=== PATIENT | female | born 1995 | race Caucasian/White ===

== ENCOUNTER 2020-02-09 18:53 | Emergency (ER) | payer OTHER ==
[2020-02-09 19:03] VITALS: BP 117/79; TEMP 97.9
[2020-02-09] MEDS ORDERED: ALBUTEROL NEBULIZED 2.5 MG/3 ML INHALATION STA (19:19)
--- NOTE | 2020-02-09 19:24 | ED ---
General Adult HPI - General Chief complaint: Shortness of Breath Stated complaint: asthma med refill Time Seen by Provider: 02/09/20 19:06 Source: patient Mode of arrival: ambulatory Limitations: no limitations - History of Present Illness Initial comments: Patient is a 24-year-old female presenting to the emergency Department with complaints of mild shortness of breath and being out of her asthma medications. Patient states she has been trying to get a refill on her asthma meds for 1-2 months now and today she had a tele-health appointment with her PCP however her doctor never called her and she is becoming more and more short of breath. Patient denies any fever, chills. She states the shortness of breath feels very gradual over the last 1-2 months but she can tell her symptoms are worsening. She states she was tested for Covid 2 weeks ago which was negative. She denies any chest pains, nausea, vomiting. She states she is not . She states that she has an appointment with a different PCP in 2 months. She has no further complaints at this time. Upon arrival to the ER her vital signs are stable. - Related Data Home Medications Medication Instructions Recorded Confirmed Acetaminophen Tab [Tylenol Tab] 650 mg PO Q4H PRN 04/05/16 04/05/16 Medroxyprogesterone Acetate 150 mg IM Q90D 04/05/16 04/05/16 [Depo-Provera] Previous Rx's Medication Instructions Recorded Albuterol Inhaler [Ventolin Hfa 1 puff INHALATION Q4H PRN #1 puff 02/09/20 Inhaler] Tiotropium 18 Mcg/Puff [Spiriva] 1 puff INHALATION DAILY #1 device 02/09/20 Allergies Allergy/AdvReac Type Severity Reaction Status Date / Time amoxicillin Allergy Rash/Hives Verified 09/02/19 10:10 Review of Systems ROS Statement: Those systems with pertinent positive or pertinent negative responses have been documented in the HPI. ROS Other: All systems not noted in ROS Statement are negative. Past Medical History Past Medical History: Asthma, No Reported History, Thyroid Disorder Additional Past Medical History / Comment(s): BRUISES EASILY History of Any Multi-Drug Resistant Organisms: None Reported Past Surgical History: No Surgical Hx Reported Additional Past Surgical History / Comment(s): DENTAL EXTRACTION Past Anesthesia/Blood Transfusion Reactions: No Reported Reaction Past Psychological History: Anxiety Smoking Status: Never smoker Past Alcohol Use History: Occasional Past Drug Use History: Marijuana - Past Family History Mother Family Medical History: Cancer Additional Family Medical History / Comment(s): CERVICAL CA General Exam - General Exam Comments Initial Comments: GENERAL: Patient is well-developed and well-nourished. Patient is nontoxic and in no acute distress. HEAD: Atraumatic, normocephalic. EYES: Pupils equal round and reactive to light, extraocular movements intact, sclera anicteric, conjunctiva are normal. Eyelids were unremarkable. ENT: TMs normal, nares patent, oropharynx clear without exudates. Moist mucous membranes. NECK: Normal range of motion, supple without lymphadenopathy or JVD. LUNGS: Unlabored respirations. Breath sounds clear to auscultation bilaterally and equal. No wheezes rales or rhonchi. HEART: Regular rate and rhythm without murmurs, rubs or gallops. ABDOMEN: Soft, nontender, normoactive bowel sounds. No guarding, no rebound. No masses appreciated. : Deferred MUSCULOSKELETAL: Normal extremities with adequate strength and normal range of motion, no pitting or edema. No clubbing or cyanosis. NEUROLOGICAL: Patient is alert and oriented x 3. Motor and sensory are also intact. Normal speech, normal gait. PSYCH: Normal mood, normal affect. SKIN: Warm, Dry, normal turgor, no rashes or lesions noted. Limitations: no limitations Course Vital Signs 02/09/20 02/09/20 02/09/20 19:00 19:46 19:53 Temperature 97.9 F Pulse Rate 98 77 80 Respiratory 18 18 16 Rate Blood Pressure 117/79 O2 Sat by Pulse 99 Oximetry Medical Decision Making - Medical Decision Making Patient is a 24-year-old female here requesting a refill on her asthma medications, albuterol and Spiriva. She is complaining of gradual shortness of breath over the last 1-2 months, she's been out of her medications since December. Her vital signs are stable her exam is unremarkable. I did order her an albuterol treatment which did improve her symptoms. I will give her relief of her medications. She will follow up with a new PCP and 2 months. She is in agreement with this plan of care. She is stable for discharge. Disposition Clinical Impression: Medication refill, Shortness of breath Disposition: HOME SELF-CARE Condition: Stable Instructions (If sedation given, give patient instructions): Asthma (ED) Additional Instructions: Please return to the Emergency Department if symptoms worsen or any other concerns. Take medications as prescribed. Follow-up with PCP. Prescriptions: Tiotropium 18 Mcg/Puff [Spiriva] 1 puff INHALATION DAILY #1 device Albuterol Inhaler [Ventolin Hfa Inhaler] 1 puff INHALATION Q4H PRN #1 puff PRN Reason: shortness of breath Is patient prescribed a controlled substance at d/c from ED?: No Referrals: None,Stated [Primary Care Provider] - 1-2 days
[2020-02-09 19:54] VITALS: PULSE 80; RESP 16
== END 2020-02-09 20:09 | disposition home or self-care (01) ==
LOC: EC 18:53
DX: R06.02 Shortness of breath (principal); Z76.0 Encounter for issue of repeat prescription; Z88.0 Allergy status to penicillin
CPT/HCPCS: 94640; 99285

== ENCOUNTER 2020-02-22 18:22 | Emergency (ER) | payer OTHER ==
[2020-02-22] MEDS ORDERED: KETOROLAC 15 MG/ML 1 ML VIAL IVP STA (18:36)
[2020-02-22 19:19] LABS: Basophils % (A) 0 %; Eosinophils # (A) 0.1 k/uL (0-0.7); Eosinophils % (A) 1 %; HCT 43.4 % (34.0-46.0); HGB 14.2 gm/dL (11.4-16.0); Lymphocytes # (A) 1.2 k/uL (1.0-4.8); Lymphocytes % (A) 10 %; MCH 27.9 pg (25.0-35.0); MCHC 32.7 g/dL (31.0-37.0); MCV 85.1 fL (80.0-100.0); Mean Platelet Volume 7.2; Monocytes # (A) 0.3 k/uL (0-1.0); Monocytes % (A) 2 %; Neutrophils # (A) 10.8 k/uL (1.3-7.7); Neutrophils % (A) 86 %; Platelet Count 256 k/uL (150-450); RDW 12.6 % (11.5-15.5); WBC 12.5 k/uL (3.8-10.6)
[2020-02-22 19:31] LABS: ALT 9 U/L (4-34); AST 20 U/L (14-36); African American GFR (CKD) >90 (>60 ml/min/1.73 sqM); Albumin 4.9 g/dL (3.5-5.0); Alkaline Phosphatase 118 U/L (38-126); Anion Gap 13 mmol/L; Blood Urea Nitrogen 14 mg/dL (7-17); Calcium 9.9 mg/dL (8.4-10.2); Carbon Dioxide 22 mmol/L (22-30); Chloride 102 mmol/L (98-107); Glucose 101 mg/dL (74-99); Non-African American GFR(CKD) >90 (>60 ml/min/1.73 sqM); Potassium 4.3 mmol/L (3.5-5.1); Sodium 137 mmol/L (137-145); Total Bilirubin 0.6 mg/dL (0.2-1.3); Total Protein 8.7 g/dL (6.3-8.2)
--- NOTE | 2020-02-22 19:46 | ED ---
Abdominal Pain HPI - General Chief Complaint: Abdominal Pain Stated Complaint: IUD Pain Time Seen by Provider: 02/22/20 18:27 Source: patient Limitations: no limitations - History of Present Illness Initial Comments: 24-year-old female presenting today for chief complaint pain after IUD placement. Patient states she was given a medication to cause dilation of her cervix and has the IUD inserted. patient states that she has had some spotting no heavy bleeding and significant pain. patient states that there is a lot of cramping and she is not sure this is secondary to the medication or just the iUD placement within itself. Patient was told by her OBGYN to come here and have the strings checked. Patient states she took 1000mg so far today for pain. Patient denies additional complaints. Upon arrival patient appaers well nontoxic in no acute distress. - Related Data Home Medications Medication Instructions Recorded Confirmed Acetaminophen Tab [Tylenol Tab] 650 mg PO Q4H PRN 04/05/16 04/05/16 Medroxyprogesterone Acetate 150 mg IM Q90D 04/05/16 04/05/16 [Depo-Provera] Previous Rx's Medication Instructions Recorded Albuterol Inhaler [Ventolin Hfa 1 puff INHALATION Q4H PRN #1 puff 02/09/20 Inhaler] Tiotropium 18 Mcg/Puff [Spiriva] 1 puff INHALATION DAILY #1 device 02/09/20 Ibuprofen 600 mg PO Q8H PRN 7 Days #21 tab 02/22/20 Allergies Allergy/AdvReac Type Severity Reaction Status Date / Time amoxicillin Allergy Rash/Hives Verified 02/22/20 18:26 Review of Systems ROS Statement: Those systems with pertinent positive or pertinent negative responses have been documented in the HPI. ROS Other: All systems not noted in ROS Statement are negative. Past Medical History Past Medical History: Asthma, No Reported History, Thyroid Disorder Additional Past Medical History / Comment(s): BRUISES EASILY History of Any Multi-Drug Resistant Organisms: None Reported Past Surgical History: No Surgical Hx Reported Additional Past Surgical History / Comment(s): DENTAL EXTRACTION Past Anesthesia/Blood Transfusion Reactions: No Reported Reaction Past Psychological History: Anxiety Smoking Status: Never smoker Past Alcohol Use History: Occasional Past Drug Use History: Marijuana - Past Family History Mother Family Medical History: Cancer Additional Family Medical History / Comment(s): CERVICAL CA General Exam - General Exam Comments Initial Comments: General: The patient is awake and alert, in no distress Eye: Pupils are equal, round and reactive to light, extra-ocular movements are intact. No nystagmus. There is normal conjunctiva bilaterally. No signs of icterus. Ears, nose, mouth and throat: There are moist mucous membranes and no oral lesions. Neck: The neck is supple, there is no tenderness or JVD. Cardiovascular: There is a regular rate and rhythm. No murmur, rub or gallop is appreciated. Respiratory: Lungs are clear to auscultation, respirations are non-labored, breath sounds are equal. No wheezes, stridor, rales, or rhonchi. Gastrointestinal: Soft, non-distended, mild midline lower pelvic pain, no upper abdominal pain, abdomen without masses or organomegaly noted. There is no rebo und or guarding present. ; os closed, IUD string in cervical os opening. scant dark brown blood in vault no large quantity of bright red blood Musculoskeletal: Normal ROM, no tenderness. Strength 5/5. Sensation intact. Radial pulses equal bilaterally 2+. Neurological: A&O x 3. CN II-XII intact grossly, There are no obvious motor or sensory deficits. Coordination appears grossly intact. Speech is normal. Skin: Skin is warm and dry and no rashes or lesions are noted. Psychiatric: Cooperative, appropriate mood & affect, normal judgment. Limitations: no limitations Course Vital Signs 02/22/20 02/22/20 18:23 20:25 Temperature 97.3 F L 98.7 F Pulse Rate 88 99 Respiratory 18 16 Rate Blood Pressure 127/88 103/78 O2 Sat by Pulse 98 98 Oximetry Medical Decision Making - Medical Decision Making Labs stable. US IUD placement appropriate, string in good position on pelvic exam. Pt did not appear to have rigidity or guarding on abdominal exam. Did not appear to be acute abdomen. Patient has trace amount of free fluid on US no large quantities. Significant improvement of symptoms after administration of toradol. recommended NSAIDs outpatient with OBGYN f/u, return for increasing pain/bleeding/fevers. Patient agreeable to care plan and discharge. Case discussed with Dr. Ramirez via telephone. - Lab Data Result diagrams: 02/22/20 18:52 02/22/20 18:52 Lab Results 02/22/20 02/22/2002/21/20 Range/Units 18:52 18:52 18:52 WBC 12.5 H (3.8-10.6) k/uL RBC 5.10 (3.80-5.40) m/uL Hgb 14.2 (11.4-16.0) gm/dL Hct 43.4 (34.0-46.0) % MCV 85.1 (80.0-100.0) fL MCH 27.9 (25.0-35.0) pg MCHC 32.7 (31.0-37.0) g/dL RDW 12.6 (11.5-15.5) % Plt Count 256 (150-450) k/uL Neutrophils % 86 % Lymphocytes % 10 % Monocytes % 2 % Eosinophils % 1 % Basophils % 0 % Neutrophils # 10.8 H (1.3-7.7) k/uL Lymphocytes # 1.2 (1.0-4.8) k/uL Monocytes # 0.3 (0-1.0) k/uL Eosinophils # 0.1 (0-0.7) k/uL Basophils # 0.0 (0-0.2) k/uL Sodium 137 (137-145) mmol/L Potassium 4.3 (3.5-5.1) mmol/L Chloride 102 (98-107) mmol/L Carbon Dioxide 22 (22-30) mmol/L Anion Gap 13 mmol/L BUN 14 (7-17) mg/dL Creatinine 0.72 (0.52-1.04) mg/dL Est GFR (CKD-EPI)AfAm >90 (>60 ml/min/1.73 sqM) Est GFR (CKD-EPI)NonAf >90 (>60 ml/min/1.73 sqM) Glucose 101 H (74-99) mg/dL Calcium 9.9 (8.4-10.2) mg/dL Total Bilirubin 0.6 (0.2-1.3) mg/dL AST 20 (14-36) U/L ALT 9 (4-34) U/L Alkaline Phosphatase 118 (38-126) U/L Total Protein 8.7 H (6.3-8.2) g/dL Albumin 4.9 (3.5-5.0) g/dL Urine HCG, Qual Not Detected (Not Detectd) Disposition Clinical Impression: Other acute postprocedural pain, Abdominal cramping Disposition: HOME SELF-CARE Condition: Good Instructions (If sedation given, give patient instructions): Intrauterine Device (DC) Additional Instructions: Please use medication as discussed. Please follow-up with family doctor in the next 2 days, OBGYN in next week. Please return to emergency room if the symptoms increase or worsen or for any other concerns. Prescriptions: Ibuprofen 600 mg PO Q8H PRN 7 Days #21 tab PRN Reason: Pain Is patient prescribed a controlled substance at d/c from ED?: No Referrals: None,Stated [Primary Care Provider] - 1-2 days Rosanne Mejia, DO [Family Provider] - 1-2 days Time of Disposition: 20:18
--- NOTE | 2020-02-22 20:12 | US ---
EXAMINATION TYPE: US transvaginal DATE OF EXAM: 02/22/2020 COMPARISON: US 2017 CLINICAL HISTORY: IUD placement. IUD placement. Patient recently off Depo. . Hx miscarriage. TECHNIQUE: Transvaginal (TV). Date of LMP: Unknown. EXAM MEASUREMENTS: Uterus: 6.9 x 3.8 x 3.0 cm Endometrial Stripe: 0.43 cm Right Ovary: 3.2 x 5.5 x 1.9 cm Left Ovary: 2.9 x 2.2 x 1.5 cm 1. Uterus: Anteverted Appears slightly heterogeneous. IUD appears to be within the upper-mid endom etrium. Hypoechoic area seen mid uterus measurin.8 x 1.1 x 0.2 cm. 2. Endometrium: Measures 0.43 cm. 3. Right Ovary: Anechoic areas seen. Largest measures: 1.2 x 1.4 x 0.9 cm. 4. Left Ovary: Subcentimeter anechoic areas seen. Spectral, color and waveform doppler imaging shows arterial and venous flow within the ovaries. 5. Bilateral Adnexa: Appear wnl 6. Posterior cul-de-sac: Fluid visualized: 0.6 x 1.1 x 0.7 cm. IMPRESSION: IUD appears in good position. There is trace amount of free fluid in the cul-de-sac. No adnexal mass.
[2020-02-22 20:26] VITALS: BP 103/78; PULSE 99; RESP 16; TEMP 98.7
== END 2020-02-22 20:27 | disposition home or self-care (01) ==
LOC: EC 18:22
DX: G89.18 Other acute postprocedural pain (principal); R10.9 Unspecified abdominal pain; Z97.5 Presence of (intrauterine) contraceptive device; Z88.0 Allergy status to penicillin; Z79.3 Long term (current) use of hormonal contraceptives
CPT/HCPCS: 36415; 80053; 85025; 81025; 93975; 76830; 99284; 96374; J1885

== ENCOUNTER 2020-03-26 13:31 | Emergency (ER) | payer OTHER ==
[2020-03-26 13:42] VITALS: BP 125/89; PULSE 102; TEMP 98.3
--- NOTE | 2020-03-26 14:12 | XR ---
EXAMINATION TYPE: XR ankle complete LT DATE OF EXAM: 03/26/2020 COMPARISON: NONE HISTORY: Ankle pain TECHNIQUE: 3 views FINDINGS: Ankle mortise is anatomic. I see no fracture nor dislocation. Joint spaces are normal. IMPRESSION: Negative left ankle exam. No fracture.
[2020-03-26 14:15] VITALS: RESP 18
--- NOTE | 2020-03-26 14:36 | ED ---
Lower Extremity Injury HPI - General Chief Complaint: Extremity Injury, Lower Stated Complaint: L Ankle Injury Time Seen by Provider: 03/26/20 13:47 Source: patient Mode of arrival: ambulatory Limitations: no limitations - History of Present Illness Initial Comments: Patient is a 24-year-old female presenting to the emergency Department with complaints of left ankle pain for 2 days. Patient states 2 days ago she fell and tripped injuring her left ankle. Patient states she went to [facility] and did have x-rays, she was told they were negative and gave her orthopedic follow-up. Patient states she returns today because she "knows she has a broken left ankle." She states she has had previous fractures of her left ankle and she believes x-ray was wrong. She denies any numbness or tingling. She denies any fever or chills. She has no other complaints at this time. - Related Data Home Medications Medication Instructions Recorded Confirmed Acetaminophen Tab [Tylenol Tab] 650 mg PO Q4H PRN 04/05/16 04/05/16 Medroxyprogesterone Acetate 150 mg IM Q90D 04/05/16 04/05/16 [Depo-Provera] Previous Rx's Medication Instructions Recorded Albuterol Inhaler [Ventolin Hfa 1 puff INHALATION Q4H PRN #1 puff 02/09/20 Inhaler] Tiotropium 18 Mcg/Puff [Spiriva] 1 puff INHALATION DAILY #1 device 02/09/20 Ibuprofen 600 mg PO Q8H PRN 7 Days #21 tab 02/22/20 Allergies Allergy/AdvReac Type Severity Reaction Status Date / Time amoxicillin Allergy Rash/Hives Verified 03/26/20 13:42 Review of Systems ROS Statement: Those systems with pertinent positive or pertinent negative responses have been documented in the HPI. ROS Other: All systems not noted in ROS Statement are negative. Past Medical History Past Medical History: Asthma, Thyroid Disorder Additional Past Medical History / Comment(s): BRUISES EASILY History of Any Multi-Drug Resistant Organisms: None Reported Past Surgical History: No Surgical Hx Reported Additional Past Surgical History / Comment(s): DENTAL EXTRACTION Past Anesthesia/Blood Transfusion Reactions: No Reported Reaction Past Psychological History: Anxiety, Depression Smoking Status: Never smoker Past Alcohol Use History: Occasional Past Drug Use History: Marijuana - Past Family History Mother Family Medical History: Cancer Additional Family Medical History / Comment(s): CERVICAL CA General Exam - General Exam Comments Initial Comments: GENERAL: Patient is well-developed and well-nourished. Patient is nontoxic and in no acute distress. HEAD: Atraumatic, normocephalic. EYES: Pupils equal round and reactive to light, extraocular movements intact, sclera anicteric, conjunctiva are normal. Eyelids were unremarkable. ENT: TMs normal, nares patent, oropharynx clear without exudates. Moist mucous membranes. NECK: Normal range of motion, supple without lymphadenopathy or JVD. LUNGS: Unlabored respirations. Breath sounds clear to auscultation bilaterally and equal. No wheezes rales or rhonchi. HEART: Regular rate and rhythm without murmurs, rubs or gallops. ABDOMEN: Soft, nontender, normoactive bowel sounds. No guarding, no rebound. No masses appreciated. : Deferred MUSCULOSKELETAL: Patient has pain with palpation of the lateral malleolus of the left ankle, she does have some mild swelling, no bruising, neurovascular intact. She does have full range of motion, pain at the end range. No pain of the left foot or left lower leg. No clubbing or cyanosis. NEUROLOGICAL: Patient is alert and oriented x 3. Motor and sensory are also intact. Cranial nerves II through XII grossly intact. Symmetrical smile. Normal speech, normal gait. PSYCH: Normal mood, normal affect. SKIN: Warm, Dry, normal turgor, no rashes or lesions noted. Limitations: no limitations Course Vital Signs 03/26/20 13:39 Temperature 98.3 F Pulse Rate 102 H Respiratory 18 Rate Blood Pressure 125/89 O2 Sat by Pulse 98 Oximetry Medical Decision Making - Medical Decision Making Patient is a 24-year-old female here for left ankle pain for the last 2 days. She did have x-rays and was evaluated at [facility] 2 days ago, they were negative however she wanted to be reevaluated. X-rays today reveal no acute fractures dislocations. I discussed the patient is most likely an ankle sprain. She states she does have an ankle brace and orthopedic follow-up. She is stable for discharge. Recommended ibuprofen, ice for her discomfort. She is stable for discharge. Disposition Clinical Impression: Left ankle sprain Disposition: HOME SELF-CARE Condition: Stable Instructions (If sedation given, give patient instructions): Ankle Sprain (ED) Additional Instructions: Please return to the Emergency Department if symptoms worsen or any other concerns. X-rays today are normal. Recommend ice, ibuprofen for discomfort, wear ankle brace. Follow-up with orthopedics if symptoms persist more than 1-2 weeks without improvement. Is patient prescribed a controlled substance at d/c from ED?: No Referrals: Nelson Foy MD [Primary Care Provider] - 1-2 days
== END 2020-03-26 14:40 | disposition home or self-care (01) ==
LOC: EC 13:31
DX: S93.402A Sprain of unspecified ligament of left ankle, initial encounter (principal); Z88.0 Allergy status to penicillin; Z79.3 Long term (current) use of hormonal contraceptives; W08.XXXA Fall from other furniture, initial encounter
CPT/HCPCS: 99283

== ENCOUNTER 2020-05-21 15:34 | Emergency (ER) | payer OTHER ==
[2020-05-21 15:39] VITALS: BP 125/90; PULSE 97; RESP 18; TEMP 98.3
[2020-05-21] MEDS ORDERED: KETOROLAC 15 MG/ML 1 ML VIAL IM STA (16:02)
[2020-05-21] MEDS ORDERED: ONDANSETRON ODT 4 MG TAB PO STA (16:02)
--- NOTE | 2020-05-21 16:22 | ED ---
Headache HPI - General Chief Complaint: Headache Stated Complaint: Headache Time Seen by Provider: 05/21/20 15:41 Limitations: no limitations - History of Present Illness Initial Comments: Patient is a 24-year-old female presenting to the emergency Department with complaints of a headache that started yesterday. She does have history of migraines but has not taken anything for her migraines. She states she took a Tylenol last night but nothing today. She is feeling a little bit nauseous. She denies any lightheadedness, dizziness, fever or chills. She states this feels like her typical headaches. She denies any injuries or trauma. She denies being . She has no further complaints. - Related Data Home Medications Medication Instructions Recorded Confirmed Albuterol Inhaler [Ventolin Hfa 1 puff INHALATION RT-Q4H PRN 05/21/20 05/21/20 Inhaler] Escitalopram [Lexapro] 20 mg PO DAILY 05/21/20 05/21/20 valACYclovir [Valtrex] 500 mg PO BID 05/21/20 05/21/20 Allergies Allergy/AdvReac Type Severity Reaction Status Date / Time amoxicillin Allergy Rash/Hives Verified 05/21/20 16:37 Review of Systems ROS Statement: Those systems with pertinent positive or pertinent negative responses have been documented in the HPI. ROS Other: All systems not noted in ROS Statement are negative. Past Medical History Past Medical History: Asthma, Thyroid Disorder Additional Past Medical History / Comment(s): BRUISES EASILY History of Any Multi-Drug Resistant Organisms: None Reported Past Surgical History: No Surgical Hx Reported Additional Past Surgical History / Comment(s): DENTAL EXTRACTION Past Anesthesia/Blood Transfusion Reactions: No Reported Reaction Past Psychological History: Anxiety, Depression Smoking Status: Never smoker Past Alcohol Use History: Occasional Past Drug Use History: Marijuana - Past Family History Mother Family Medical History: Cancer Additional Family Medical History / Comment(s): CERVICAL CA General Exam - General Exam Comments Initial Comments: GENERAL: Patient is well-developed and well-nourished. Patient is nontoxic and in no acute distress, when entering the room, patient was playing on her phone in no acute distress. HEAD: Atraumatic, normocephalic. EYES: Pupils equal round and reactive to light, extraocular movements intact, sclera anicteric, conjunctiva are normal. Eyelids were unremarkable. ENT: TMs normal, nares patent, oropharynx clear without exudates. Moist mucous membranes. NECK: Normal range of motion, supple without lymphadenopathy or JVD. LUNGS: Unlabored respirations. Breath sounds clear to auscultation bilaterally and equal. No wheezes rales or rhonchi. HEART: Regular rate and rhythm without murmurs, rubs or gallops. ABDOMEN: Soft, nontender, normoactive bowel sounds. No guarding, no rebound. No masses appreciated. : Deferred MUSCULOSKELETAL: Normal extremities with adequate strength and normal range of motion, no pitting or edema. No clubbing or cyanosis. NEUROLOGICAL: Patient is alert and oriented x 3. Motor and sensory are also intact. Cranial nerves II through XII grossly intact. Symmetrical smile. Normal speech, normal gait. PSYCH: Normal mood, normal affect. SKIN: Warm, Dry, normal turgor, no rashes or lesions noted. Limitations: no limitations Course Vital Signs 05/21/20 15:35 Temperature 98.3 F Pulse Rate 97 Respiratory 18 Rate Blood Pressure 125/90 O2 Sat by Pulse 100 Oximetry Medical Decision Making - Medical Decision Making Patient is a 24-year-old female here with a headache since yesterday. Her vital signs are stable. Her exam is unremarkable, no acute neuro deficits. She is resting complaining the room, playing on a phone when I went in for the exam. Patient will be given Toradol injection and Zofran for her nausea. She reports improvement in her symptoms. She is stable for discharge. She can follow-up with her regular doctor. Disposition Clinical Impression: Headache Disposition: HOME SELF-CARE Condition: Stable Instructions (If sedation given, give patient instructions): Acute Headache (ED) Additional Instructions: Please return to the Emergency Department if symptoms worsen or any other concerns. Recommended taking ibuprofen or Excedrin for future headaches. Follow-up with your regular doctor. Is patient prescribed a controlled substance at d/c from ED?: No Referrals: Nelson Foy MD [Primary Care Provider] - 1-2 days
== END 2020-05-21 17:00 | disposition home or self-care (01) ==
LOC: EC 15:34
DX: R51.9 Headache, unspecified (principal); R11.0 Nausea; J45.909 Unspecified asthma, uncomplicated; F41.9 Anxiety disorder, unspecified; F32.9 Major depressive disorder, single episode, unspecified; Z79.899 Other long term (current) drug therapy; Z88.0 Allergy status to penicillin
CPT/HCPCS: 99283; 96372; J1885

== ENCOUNTER → 2020-11-01 | Outpatient (CLI) | payer OTHER ==
--- NOTE | 2020-11-01 11:58 | XR ---
EXAMINATION TYPE: XR lumbar spine 2 or 3V DATE OF EXAM: 11/01/2020 CLINICAL HISTORY: pain TECHNIQUE: Three views of the lumbar spine are submitted. COMPARISON: None. FINDINGS: There are 5 lumbar type vertebral bodies identified. The lumbar spine shows satisfactory alignment w ithout evidence of acute fracture or dislocation. Vertebral body heights are within normal limits. Disc spaces are within normal limits. The overlying soft tissue appears unremarkable. IMPRESSION: No acute fracture or dislocation is seen in the lumbar spine. ICD 10 NO FRACTURE, INITIAL EVALUATION
--- NOTE | 2020-11-01 13:29 | XR ---
EXAMINATION TYPE: XR thoracic spine complete DATE OF EXAM: 11/01/2020 CLINICAL HISTORY: pain TECHNIQUE: Frontal, lateral, and swimmer's view of thoracic spine are obtained. COMPARISON: None. FINDINGS: Thoracic spine show satisfactory alignment without evidence of acute fracture or dislocatio n. Vertebral body heights are preserved. Disc spaces are well preserved. Visualized ribs are unrem arkable. IMPRESSION: No acute fracture or dislocation is seen in the thoracic spine. ICD 10 NO FRACTURE, INIT IAL EVALUATION
== END | disposition home or self-care (01) ==
LOC: RADXRMAIN 11:22
PROVIDERS: ATTEND Internal Medicine
DX: M54.5 Low back pain (principal); M54.6 Pain in thoracic spine
CPT/HCPCS: 72072; 72100

== ENCOUNTER 2021-01-02 09:11 | Emergency (ER) | payer OTHER ==
[2021-01-02 09:15] VITALS: BP 108/81; PULSE 85; RESP 18; TEMP 98.4
[2021-01-02 10:35] LABS: Appearance,Urine Turbid (Clear); Bacteria,Urine Rare /hpf; Bilirubin,Urine Negative (Negative); Blood,Urine Small (Negative); Color,Urine Yellow; Glucose,Urine (UA) Negative (Negative); Ketones,Urine 2+ (Negative); Leukocyte Esterase,Urine Large (Negative); Mucus,Urine Rare /hpf; Nitrite,Urine Negative (Negative); PH, Urine 6.5 (5.0-8.0); Protein,Urine 1+ (Negative); RBC,Urine 11 /hpf (0-5); Squamous Epithelial Cell,Urine 11 /hpf (0-4); Urobilinogen,Urine <2.0 mg/dL (<2.0); WBC,Urine >182 /hpf (0-5)
[2021-01-02] MEDS ORDERED: cefTRIAXone 1,000 MG VIAL (IM USE) IM STA (10:47)
--- NOTE | 2021-01-02 10:51 | ED ---
General Adult HPI - General Chief complaint: Urogenital Stated complaint: Back Pain Time Seen by Provider: 01/02/21 09:26 Source: patient Mode of arrival: ambulatory Limitations: no limitations - History of Present Illness Initial comments: 25-year-old female presents to the emergency room for a chief complaint of low back pain. Patient states for the past one or 2 weeks she has had lower back pain. She also has a "weird" feeling after urinating. Denies that this is specifically painful but just a different feeling. She does not have fevers or chills. She does not have any upper or mid back pain. No nausea vomiting. No abdominal pain.Patient has no other complaints at this time including shortness of breath, chest pain, abdominal pain, nausea or vomiting, headache, or visual changes. - Related Data Home Medications Medication Instructions Recorded Confirmed Albuterol Inhaler [Ventolin Hfa 1 puff INHALATION RT-Q4H PRN 05/21/20 05/21/20 Inhaler] Escitalopram [Lexapro] 20 mg PO DAILY 05/21/20 05/21/20 valACYclovir [Valtrex] 500 mg PO BID 05/21/20 05/21/20 Previous Rx's Medication Instructions Recorded Cephalexin [Keflex] 500 mg PO Q6HR 10 Days #40 cap 01/02/21 Allergies Allergy/AdvReac Type Severity Reaction Status Date / Time amoxicillin Allergy Rash/Hives Verified 01/02/21 09:15 Review of Systems ROS Statement: Those systems with pertinent positive or pertinent negative responses have been documented in the HPI. ROS Other: All systems not noted in ROS Statement are negative. Past Medical History Past Medical History: Asthma, Thyroid Disorder Additional Past Medical History / Comment(s): BRUISES EASILY History of Any Multi-Drug Resistant Organisms: None Reported Past Surgical History: No Surgical Hx Reported Additional Past Surgical History / Comment(s): DENTAL EXTRACTION Past Anesthesia/Blood Transfusion Reactions: No Reported Reaction Past Psychological History: Anxiety, Depression Smoking Status: Never smoker Past Alcohol Use History: Occasional Past Drug Use History: Marijuana - Past Family History Mother Family Medical History: Cancer Additional Family Medical History / Comment(s): CERVICAL CA General Exam Limitations: no limitations General appearance: alert Head exam: Present: atraumatic Eye exam: Present: normal appearance, PERRL, EOMI. Absent: scleral icterus, conjunctival injection ENT exam: Present: normal exam, mucous membranes moist Neck exam: Present: normal inspection, full ROM. Absent: tenderness Respiratory exam: Present: normal lung sounds bilaterally. Absent: respiratory distress, wheezes Cardiovascular Exam: Present: regular rate, normal rhythm, normal heart sounds GI/Abdominal exam: Present: soft, normal bowel sounds. Absent: distended, tenderness Back exam: Absent: CVA tenderness (R), CVA tenderness (L) Course Vital Signs 01/02/21 09:12 Temperature 98.4 F Pulse Rate 85 Respiratory 18 Rate Blood Pressure 108/81 O2 Sat by Pulse 97 Oximetry Medical Decision Making - Medical Decision Making Vitals are stable. Patient is afebrile. Patient does not have any CVA tenderness. Urinalysis does show evidence of infection and will be cultured. Patient was given IM Rocephin. We will start her on Keflex outpatient. If patient starts to get fevers or upper back pain she will need to return to the emergency room for IV antibiotics and hydration. At this time however she is hydrating orally. She will follow up with her doctor. - Lab Data Lab Results 01/02/21 01/02/21 Range/Units 09:47 09:47 Urine Color Yellow Urine Appearance Turbid H (Clear) Urine pH 6.5 (5.0-8.0) Ur Specific [place] 1.020 (1.001-1.035) Urine Protein 1+ H (Negative) Urine Glucose (UA) Negative (Negative) Urine Ketones 2+ H (Negative) Urine Blood Small H (Negative) Urine Nitrite Negative (Negative) Urine Bilirubin Negative (Negative) Urine Urobilinogen <2.0 (<2.0) mg/dL Ur Leukocyte Esterase Large H (Negative) Urine RBC 11 H (0-5) /hpf Urine WBC >182 H (0-5) /hpf Ur Squamous Epith Cells 11 H (0-4) /hpf Urine Bacteria Rare H (None) /hpf Urine Mucus Rare H (None) /hpf Urine HCG, Qual Not Detected (Not Detectd) Disposition Clinical Impression: Urinary tract infection Disposition: HOME SELF-CARE Condition: Good Instructions (If sedation given, give patient instructions): Urinary Tract Infection in Women (ED) Additional Instructions: Take antibiotic as directed. Drink plenty of fluids. Take Zofran if you become nauseous. If you are having any worsening symptoms such as fevers, upper back pain, or are unable to keep your antibiotics or fluids down return immediately to the emergency room. Otherwise follow up with primary care this week. Prescriptions: Cephalexin [Keflex] 500 mg PO Q6HR 10 Days #40 cap Is patient prescribed a controlled substance at d/c from ED?: No Referrals: Rehana Billy MD [Primary Care Provider] - 1-2 days Time of Disposition: 10:49
[2021-01-02] MEDS ORDERED: CEPHALEXIN 500MG STARTER PACK 4 CAP BTL PO STA (10:55)
== END 2021-01-02 11:14 | disposition home or self-care (01) ==
LOC: EC 09:11
DX: N39.0 Urinary tract infection, site not specified (principal); J45.909 Unspecified asthma, uncomplicated; Z88.0 Allergy status to penicillin
CPT/HCPCS: 81001; 81025; 87086; 99283

== ENCOUNTER 2021-01-10 19:22 | Emergency (ER) | payer OTHER ==
[2021-01-10 19:59] VITALS: BP 117/80; TEMP 98.6
--- NOTE | 2021-01-10 20:29 | ED ---
ENT HPI - General Chief complaint: ENT Stated complaint: sore throat Time Seen by Provider: 01/10/21 20:20 Source: patient Mode of arrival: ambulatory Limitations: no limitations - History of Present Illness Initial comments: 25-year-old white female well appearing, presents to the emergency room with complaints of a sore throat that started today. She states that her roommate has a sinus infection. She denies any fevers, nausea vomiting or diarrhea. She states that she has not had any exposures to Covid. She was offered testing for influenza, Covid and RSV and she declined. She is willing to be tested for strep throat. complaint: other (Sore throat) -: days(s) (1) Severity scale (1-10): 4 Quality: other (Sore) Consistency: constant Associated Symptoms: sore throat - Related Data Home Medications Medication Instructions Recorded Confirmed Albuterol Inhaler [Ventolin Hfa 1 puff INHALATION RT-Q4H PRN 05/21/20 05/21/20 Inhaler] Escitalopram [Lexapro] 20 mg PO DAILY 05/21/20 05/21/20 valACYclovir [Valtrex] 500 mg PO BID 05/21/20 05/21/20 Previous Rx's Medication Instructions Recorded Cephalexin [Keflex] 500 mg PO Q6HR 10 Days #40 cap 01/02/21 Allergies Allergy/AdvReac Type Severity Reaction Status Date / Time amoxicillin Allergy Rash/Hives Verified 01/10/21 19:59 Review of Systems ROS Statement: Those systems with pertinent positive or pertinent negative responses have been documented in the HPI. ROS Other: All systems not noted in ROS Statement are negative. Past Medical History Past Medical History: Asthma, Thyroid Disorder Additional Past Medical History / Comment(s): BRUISES EASILY History of Any Multi-Drug Resistant Organisms: None Reported Past Surgical History: No Surgical Hx Reported Additional Past Surgical History / Comment(s): DENTAL EXTRACTION Past Anesthesia/Blood Transfusion Reactions: No Reported Reaction Past Psychological History: Anxiety, Depression Smoking Status: Never smoker Past Alcohol Use History: Occasional Past Drug Use History: Marijuana - Past Family History Mother Family Medical History: Cancer Additional Family Medical History / Comment(s): CERVICAL CA General Exam Limitations: no limitations General appearance: alert, in no apparent distress Head exam: Present: atraumatic, normocephalic, normal inspection Eye exam: Present: normal appearance, PERRL, EOMI. Absent: scleral icterus, co njunctival injection, periorbital swelling ENT exam: Present: normal exam, normal oropharynx, mucous membranes moist Neck exam: Present: normal inspection, full ROM. Absent: tenderness, meningismus, lymphadenopathy, thyromegaly Respiratory exam: Present: normal lung sounds bilaterally. Absent: respiratory distress, wheezes, rales, rhonchi, stridor Cardiovascular Exam: Present: tachycardia GI/Abdominal exam: Present: soft, normal bowel sounds. Absent: distended, tenderness, guarding, rebound, rigid Back exam: Absent: tenderness Neurological exam: Present: alert, oriented X3, CN II-XII intact Psychiatric exam: Present: normal affect, normal mood Skin exam: Present: warm, dry, intact, normal color. Absent: rash Course Vital Signs 01/10/21 01/10/21 19:56 21:44 Temperature 98.6 F Pulse Rate 103 H 84 Respiratory 18 16 Rate Blood Pressure 117/80 O2 Sat by Pulse 98 98 Oximetry Medical Decision Making - Medical Decision Making This is a well-appearing 25-year-old female complaining of sore throat for 1 day. Her rapid strep is negative. She was offered testing for influenza and covid and declined. She has not had fever. Her throat is not erythematous and there are no tonsillar exudates. She is denying any headaches vomiting or diarr hea. Her lung sounds are clear to auscultation. She does state that she has taken cetrizine in the past for ALLERGIES but normally doesn't have a problem at this time of year. This is likely a viral illness versus seasonal ALLERGIES and was directed to follow up with her primary care doctor as needed, resume her ALLERGY medications and return if any worsening symptoms. - Lab Data Lab Results 01/10/21 Range/Units 20:26 Group A Strep Rapid Negative (Negative) Disposition Clinical Impression: Acute viral pharyngitis Disposition: HOME SELF-CARE Condition: Good Instructions (If sedation given, give patient instructions): Pharyngitis (ED) Additional Instructions: Take Tylenol and/or Motrin as needed for pain. Follow-up with the primary care doctor in 1 week. Return if any new or worsening symptoms including increased fever or inability to swallow. Is patient prescribed a controlled substance at d/c from ED?: No Referrals: Rehana Billy MD [Primary Care Provider] - 1-2 days Time of Disposition: 21:41
[2021-01-10 21:45] VITALS: PULSE 84; RESP 16
== END 2021-01-10 21:45 | disposition home or self-care (01) ==
LOC: EC 19:22
DX: J02.8 Acute pharyngitis due to other specified organisms (principal); B97.81 Human metapneumovirus as the cause of diseases classified elsewhere; J45.909 Unspecified asthma, uncomplicated; Z88.0 Allergy status to penicillin
CPT/HCPCS: 87081; 87430; 99283

== ENCOUNTER 2021-01-27 23:34 | Emergency (ER) | payer OTHER ==
[2021-01-27 23:40] VITALS: BP 115/77; PULSE 88; RESP 16; TEMP 98.9
--- NOTE | 2021-01-28 00:45 | XR ---
EXAMINATION TYPE: XR foot complete LT DATE OF EXAM: 01/28/2021 COMPARISON: NONE HISTORY: Foot pain TECHNIQUE: 3 views FINDINGS: Metatarsals are intact. I see no fracture nor dislocation. Joint spaces are normal. There a re no erosions. The toes appear intact. IMPRESSION: Negative left foot exam. No fracture.
--- NOTE | 2021-01-28 00:50 | ED ---
Lower Extremity Injury HPI - General Chief Complaint: Extremity Injury, Lower Stated Complaint: Left Foot Injury Time Seen by Provider: 01/27/21 23:44 Source: patient Mode of arrival: wheelchair - History of Present Illness Initial Comments: 's patient is 25-year-old woman who states that she injured her left foot this evening. Patient states she had stepped on uneven ground causing her foot to flex and a funny manner. She felt the popping sensation and then is having pain when she walks on it. There is no weakness or numbness. No ankle or knee pain. MD Complaint: foot injury -: hour(s) Injury: Foot: Right Type of Injury: other Place: street/outdoors Severity: moderate Improves With: nothing Worsens With: weight bearing Context: other Associated Symptoms: snap/pop sensation - Related Data Home Medications Medication Instructions Recorded Confirmed Albuterol Inhaler [Ventolin Hfa 1 puff INHALATION RT-Q4H PRN 05/21/20 05/21/20 Inhaler] Escitalopram [Lexapro] 20 mg PO DAILY 05/21/20 05/21/20 valACYclovir [Valtrex] 500 mg PO BID 05/21/20 05/21/20 Previous Rx's Medication Instructions Recorded Cephalexin [Keflex] 500 mg PO Q6HR 10 Days #40 cap 01/02/21 Allergies Allergy/AdvReac Type Severity Reaction Status Date / Time amoxicillin Allergy Rash/Hives Verified 01/27/21 23:39 Review of Systems ROS Statement: Those systems with pertinent positive or pertinent negative responses have been documented in the HPI. ROS Other: All systems not noted in ROS Statement are negative. Constitutional: Denies: fever, weakness Musculoskeletal: Reports: as per HPI, arthralgia (Left foot) Skin: Denies: lesions Neurological: Denies: weakness, numbness, paresthesias Past Medical History Past Medical History: Asthma, Thyroid Disorder Additional Past Medical History / Comment(s): BRUISES EASILY History of Any Multi-Drug Resistant Organisms: None Reported Past Surgical History: No Surgical Hx Reported Additional Past Surgical History / Comment(s): DENTAL EXTRACTION Past Anesthesia/Blood Transfusion Reactions: No Reported Reaction Past Psychological History: Anxiety, Depression Smoking Status: Never smoker Past Alcohol Use History: Occasional Past Drug Use History: Marijuana - Past Family History Mother Family Medical History: Cancer Additional Family Medical History / Comment(s): CERVICAL CA General Exam General appearance: alert, in no apparent distress Cardiovascular Exam: Present: other (Left dorsalis pedis pulse is normal in strength and capillary refill normal.) Left Knee exam: Present: normal inspection, full ROM. Absent: tenderness, swelling Lower Leg exam: Present: normal inspection, full ROM. Absent: tenderness, swelling Ankle exam: Present: normal inspection, full ROM. Absent: tenderness, swelling Foot/Toe exam: Present: normal inspection, full ROM, tenderness (Medial aspect left foot. There is no point tenderness). Absent: swelling, abrasion, laceration, ecchymosis, deformity, crepitus, dislocation, erythema, amputation, puncture wound, foreign body, calcaneal tenderness, tenderness at base of 5th metatarsal, nail avulsion, subungual hematoma Neurovascular tendon exam: Present: no vascular compromise. Absent: abnormal cap refill, motor deficit, sensory deficit, tendon deficit Neurological exam: Present: alert. Absent: motor sensory deficit (Motor sensory exam normal throughout left foot) Skin exam: Present: warm, dry, intact, normal color. Absent: rash Course Vital Signs 01/27/21 23:36 Temperature 98.9 F Pulse Rate 88 Respiratory 16 Rate Blood Pressure 115/77 O2 Sat by Pulse 100 Oximetry Disposition Clinical Impression: Sprain of foot, left Disposition: HOME SELF-CARE Condition: Good Instructions (If sedation given, give patient instructions): Foot Sprain (ED) Is patient prescribed a controlled substance at d/c from ED?: No Referrals: Rehana Billy MD [Primary Care Provider] - 1-2 days
== END 2021-01-28 01:01 | disposition home or self-care (01) ==
LOC: EC 23:34
DX: S93.602A Unspecified sprain of left foot, initial encounter (principal); J45.909 Unspecified asthma, uncomplicated; Z88.0 Allergy status to penicillin; X50.9XXA Other and unspecified overexertion or strenuous movements or postures, initial encounter; Y92.89 Other specified places as the place of occurrence of the external cause
CPT/HCPCS: 99283

== ENCOUNTER 2021-02-14 16:48 | Emergency (ER) | payer OTHER ==
[2021-02-14 18:29] LABS: Appearance,Urine Cloudy (Clear); Bacteria,Urine Rare /hpf; Bilirubin,Urine Negative (Negative); Blood,Urine Negative (Negative); Budding Yeast,Urine Occasional /hpf; Color,Urine Light Yellow; Glucose,Urine (UA) Negative (Negative); Ketones,Urine Negative (Negative); Leukocyte Esterase,Urine Trace (Negative); Mucus,Urine Rare /hpf; Nitrite,Urine Negative (Negative); Protein,Urine Negative (Negative); RBC,Urine 3 /hpf (0-5); Specific Gravity,Urine 1.006 (1.001-1.035); Squamous Epithelial Cell,Urine 1 /hpf (0-4); Urobilinogen,Urine <2.0 mg/dL (<2.0); WBC,Urine 4 /hpf (0-5)
[2021-02-14] MEDS ORDERED: ACYCLOVIR 400 MG/10 ML CUP PO ONE (19:38)
[2021-02-14] MEDS ORDERED: KETOROLAC 15 MG/ML 1 ML VIAL IM STA (19:38)
--- NOTE | 2021-02-14 19:51 | ED ---
Female Urogenital HPI - General Chief complaint: Urogenital Stated complaint: Cystic Acne Time Seen by Provider: 02/14/21 19:02 Source: patient Mode of arrival: ambulatory Limitations: no limitations - History of Present Illness Initial comments: 25 year-old female patient presents to the emergency department for evaluation of "acne" to her genital region. States that over the last two days she has had these lesions pop up. States they burn especially when she walks. She denies any itching or tingling to the area prior to onset of the rash. Denies any drainage from the lesions. Denies fever or chills. Denies chance of . States she did have similar outbreak last year though smaller, states her OBGYN checked her for HSV and she tested negative. She denies any dysuria, urinary frequency, urinary urgency. Denies any abnormal vaginal discharge or bleeding. - Related Data Home Medications Medication Instructions Recorded Confirmed Albuterol Inhaler [Ventolin Hfa 1 puff INHALATION RT-Q4H PRN 05/21/20 05/21/20 Inhaler] Escitalopram [Lexapro] 20 mg PO DAILY 05/21/20 05/21/20 valACYclovir [Valtrex] 500 mg PO BID 05/21/20 05/21/20 Previous Rx's Medication Instructions Recorded Cephalexin [Keflex] 500 mg PO Q6HR 10 Days #40 cap 01/02/21 Acyclovir 400 mg PO TID #15 tablet 02/14/21 Allergies Allergy/AdvReac Type Severity Reaction Status Date / Time amoxicillin Allergy Rash/Hives Verified 02/14/21 18:02 Review of Systems ROS Statement: Those systems with pertinent positive or pertinent negative responses have been documented in the HPI. ROS Other: All systems not noted in ROS Statement are negative. Past Medical History Past Medical History: Asthma, Thyroid Disorder Additional Past Medical History / Comment(s): BRUISES EASILY History of Any Multi-Drug Resistant Organisms: None Reported Past Surgical History: No Surgical Hx Reported Additional Past Surgical History / Comment(s): DENTAL EXTRACTION Past Anesthesia/Blood Transfusion Reactions: No Reported Reaction Past Psychological History: Anxiety, Depression Smoking Status: Never smoker Past Alcohol Use History: Occasional Past Drug Use History: Marijuana - Past Family History Mother Family Medical History: Cancer Additional Family Medical History / Comment(s): CERVICAL CA General Exam Limitations: no limitations General appearance: alert, in no apparent distress, other (Physical well- developed, well-nourished adult female patient in no acute distress) ENT exam: Present: normal exam, normal oropharynx, mucous membranes moist Respiratory exam: Present: normal lung sounds bilaterally. Absent: respiratory distress, wheezes, rales, rhonchi, stridor Cardiovascular Exam: Present: regular rate, normal rhythm, normal heart sounds. Absent: systolic murmur, diastolic murmur, rubs, gallop, clicks GI/Abdominal exam: Present: soft, normal bowel sounds. Absent: distended, tenderness, guarding, rebound, rigid External exam: Present: lesions (Multiple lesions, tiny vesicles on erythematous base. No drainage. No swelling to the labia. No drainable lesions. ). Absent: normal external exam Neurological exam: Present: alert, oriented X3, CN II-XII intact Psychiatric exam: Present: normal affect, normal mood Skin exam: Present: warm, dry, intact, normal color. Absent: rash Course Vital Signs 02/14/21 02/14/21 18:00 21:08 Temperature 98.4 F 98.5 F Pulse Rate 91 89 Respiratory 19 16 Rate Blood Pressure 122/84 128/78 O2 Sat by Pulse 100 99 Oximetry Medical Decision Making - Medical Decision Making 25-year-old female patient presented to the emergency department today for evaluation of "acting" over her genitals. Physical examination did reveal many lesions that appear to be small vesicles on erythematous base. The rash does appear to be consistent with herpes simplex virus, swab of the lesions and blood tests for herpes simplex was obtained. She was started on acyclovir for recurrent episode as she had did have similar symptoms last year though did test negative for HSV air her INSURANCE CLAIMS REPRESENTATIVE. She is instructed take Tylenol Motrin for pain control. She is instructed to follow-up with her INSURANCE CLAIMS REPRESENTATIVE for recheck as soon as possible. Return parameters were discussed in detail. She verbalizes understanding and agrees with this plan. My attending is Dr. Carreno. - Lab Data Lab Results 02/14/21 02/14/21 Range/Units 18:07 18:07 Urine Color Light Yellow Urine Appearance Cloudy H (Clear) Urine pH 6.0 (5.0-8.0) Ur Specific [place] 1.006 (1.001-1.035) Urine Protein Negative (Negative) Urine Glucose (UA) Negative (Negative) Urine Ketones Negative (Negative) Urine Blood Negative (Negative) Urine Nitrite Negative (Negative) Urine Bilirubin Negative (Negative) Urine Urobilinogen <2.0 (<2.0) mg/dL Ur Leukocyte Esterase Trace H (Negative) Urine RBC 3 (0-5) /hpf Urine WBC 4 (0-5) /hpf Ur Squamous Epith Cells 1 (0-4) /hpf Urine Bacteria Rare H (None) /hpf Urine Mucus Rare H (None) /hpf Urine Yeast (Budding) Occasional H (None) /hpf Urine HCG, Qual Not Detected (Not Detectd) Disposition Clinical Impression: Rash of genital area Disposition: HOME SELF-CARE Condition: Good Instructions (If sedation given, give patient instructions): Acute Rash (ED) Additional Instructions: Take medications as directed. Take pain medication as directed. Apply cool compresses to the area. Follow-up with your INSURANCE CLAIMS REPRESENTATIVE for recheck as soon as possible. Return to the emergency department for any new, worsening, or concerning symptoms. Prescriptions: Acyclovir 400 mg PO TID #15 tablet Is patient prescribed a controlled substance at d/c from ED?: No Referrals: Rehana Billy MD [Primary Care Provider] - 1-2 days Time of Disposition: 19:51
[2021-02-14] MEDS ORDERED: ACYCLOVIR 200 MG CAP PO ONE (20:00)
[2021-02-14 21:15] VITALS: BP 128/78; PULSE 89; RESP 16; TEMP 98.5
[2021-02-16 15:28] LABS: HSV II IgG Interp NEGATIVE (NEGATIVE)
== END 2021-02-14 20:58 | disposition home or self-care (01) ==
LOC: EC 16:48
DX: L98.9 Disorder of the skin and subcutaneous tissue, unspecified (principal); J45.909 Unspecified asthma, uncomplicated; F32.9 Major depressive disorder, single episode, unspecified; F41.9 Anxiety disorder, unspecified; F12.90 Cannabis use, unspecified, uncomplicated; Z79.51 Long term (current) use of inhaled steroids; Z79.899 Other long term (current) drug therapy; Z88.0 Allergy status to penicillin
CPT/HCPCS: 36415; 81001; 81025; 86696; 87529; 99283

== ENCOUNTER 2021-03-22 02:48 | Emergency (ER) | payer OTHER ==
[2021-03-22 02:57] VITALS: BP 123/72; PULSE 100; RESP 20; TEMP 98.3
--- NOTE | 2021-03-22 03:08 | ED ---
Fall HPI - General Chief Complaint: Extremity Injury, Upper Stated Complaint: Right wrist injury Time Seen by Provider: 03/22/21 03:01 Source: patient, RN notes reviewed, old records reviewed Mode of arrival: ambulatory Limitations: no limitations - History of Present Illness Initial Comments: Physical 25-year-old female to the emergency department for evaluation of a trip and fall trip and fall of pain to the right wrist. Pain in right wrist no other pain, no forearm pain no elbow pain and did not hit her head no loss of consciousness fall was mechanical in nature. 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 Witnessed: no Place Fall Occurred: home Loss of Consciousness: none Prolonged Down Time?: no Symptoms Prior to Fall: none Location - Extremities: Right: Forearm Severity: moderate Severity scale (1-10): 4 Quality: burning Context: tripped/slipped Associated Symptoms: denies - Related Data Home Medications Medication Instructions Recorded Confirmed Albuterol Inhaler [Ventolin Hfa 1 puff INHALATION RT-Q4H PRN 05/21/20 05/21/20 Inhaler] Escitalopram [Lexapro] 20 mg PO DAILY 05/21/20 05/21/20 valACYclovir [Valtrex] 500 mg PO BID 05/21/20 05/21/20 Previous Rx's Medication Instructions Recorded Cephalexin [Keflex] 500 mg PO Q6HR 10 Days #40 cap 01/02/21 Acyclovir 400 mg PO TID #15 tablet 02/14/21 Allergies Allergy/AdvReac Type Severity Reaction Status Date / Time amoxicillin Allergy Rash/Hives Verified 03/22/21 02:57 Review of Systems ROS Statement: Those systems with pertinent positive or pertinent negative responses have been documented in the HPI. ROS Other: All systems not noted in ROS Statement are negative. Past Medical History Past Medical History: Asthma, Thyroid Disorder Additional Past Medical History / Comment(s): BRUISES EASILY History of Any Multi-Drug Resistant Organisms: None Reported Past Surgical History: No Surgical Hx Reported Additional Past Surgical History / Comment(s): DENTAL EXTRACTION Past Anesthesia/Blood Transfusion Reactions: No Reported Reaction Past Psychological History: Anxiety, Depression Smoking Status: Never smoker Past Alcohol Use History: Occasional Past Drug Use History: Marijuana - Past Family History Mother Family Medical History: Cancer Additional Family Medical History / Comment(s): CERVICAL CA General Exam Limitations: no limitations General appearance: alert, in no apparent distress Head exam: Present: atraumatic, normocephalic, normal inspection Eye exam: Present: normal appearance, PERRL, EOMI. Absent: scleral icterus, conjunctival injection, periorbital swelling ENT exam: Present: normal exam, mucous membranes moist Neck exam: Present: normal inspection. Absent: tenderness, meningismus, lymphadenopathy Respiratory exam: Present: normal lung sounds bilaterally. Absent: respiratory distress, wheezes, rales, rhonchi, stridor Cardiovascular Exam: Present: regular rate, normal rhythm, normal heart sounds. Absent: systolic murmur, diastolic murmur, rubs, gallop, clicks GI/Abdominal exam: Present: soft, normal bowel sounds. Absent: distended, tenderness, guarding, rebound, rigid Extremities exam: Present: normal inspection, full ROM, normal capillary refill. Absent: tenderness, pedal edema, joint swelling, calf tenderness Back exam: Present: normal inspection Neurological exam: Present: alert, oriented X3, CN II-XII intact Psychiatric exam: Present: normal affect, normal mood Skin exam: Present: warm, dry, intact, normal color. Absent: rash Course Vital Signs 03/22/21 02:54 Temperature 98.3 F Pulse Rate 100 Respiratory 20 Rate Blood Pressure 123/72 O2 Sat by Pulse 99 Oximetry - Reevaluation(s) Reevaluation #1: Medical record is reviewed Patient symptoms are improved here in the ER Patient informed results and questions answered Medical Decision Making - Medical Decision Making 25 female to the emergency department for evaluation of fall trip and fall with right wrist injury noted medication injury to right wrist. Patient can be discharged home - Radiology Data Radiology results: report reviewed (X-ray wrist is negative for significant acute disease), image reviewed Disposition Clinical Impression: Fall, Contusion of right wrist Disposition: HOME SELF-CARE Condition: Good Instructions (If sedation given, give patient instructions): Wrist Injury (ED), Hand Sprain (ED) Is patient prescribed a controlled substance at d/c from ED?: No Referrals: Rehana Billy MD [Primary Care Provider] - 1-2 days
--- NOTE | 2021-03-22 03:28 | XR ---
EXAMINATION TYPE: XR wrist complete RT DATE OF EXAM: 03/22/2021 COMPARISON: NONE HISTORY: Wrist pain TECHNIQUE: 4 views FINDINGS: Carpal bones are intact. I see no fracture nor dislocation. Metacarpals are intact. Scaphoi d is intact. IMPRESSION: Negative right wrist exam.
== END 2021-03-22 04:00 | disposition home or self-care (01) ==
LOC: EC 02:48
DX: S60.211A Contusion of right wrist, initial encounter (principal); J45.909 Unspecified asthma, uncomplicated; E07.9 Disorder of thyroid, unspecified; F41.9 Anxiety disorder, unspecified; F32.A Depression, unspecified; F12.90 Cannabis use, unspecified, uncomplicated; W01.0XXA Fall on same level from slipping, tripping and stumbling without subsequent striking against object, initial encounter
CPT/HCPCS: 99283

== ENCOUNTER 2021-08-18 19:52 | Emergency (ER) | payer OTHER ==
[2021-08-18 20:02] VITALS: BP 118/83; PULSE 65; RESP 18; TEMP 99.1
[2021-08-18] MEDS ORDERED: KETOROLAC 15 MG/ML 1 ML VIAL IVP STA (20:27)
[2021-08-18] MEDS ORDERED: SODIUM CHLORIDE 0.9% 1,000 ML IV ONE (20:27)
--- NOTE | 2021-08-18 20:33 | ED ---
Female Urogenital HPI - General Chief complaint: Urogenital Stated complaint: Abdominal Pain Time Seen by Provider: 08/18/21 20:21 Source: patient, RN notes reviewed Mode of arrival: ambulatory Limitations: no limitations - History of Present Illness Initial comments: This is a pleasant 25-year-old female presents to emergency department compl aining of right pelvic cramping for the past few days. She is denying any vaginal discharge or dysuria. No hematuria. No fever or chills. Patient states that she believes that her IUD is out of place. She has been able to feel strings however. Patient does have a history of ovarian cyst. Patient had the IUD placed [address] Koenig. Patient suffers from migraine headaches but no other significant past medical history. No headache, no fever or chills, no changes in vision or hearing, no sore throat or difficulty with speech, no neck pain, no chest pain or shortness of breath, no abdominal pain, no nausea or vomiting, no changes in urination or bowel movements, no numbness or tingling, no extremity pain, no skin rashes or lesions. Patient states she is not concerned with a sexually transmitted disease. - Related Data Home Medications Medication Instructions Recorded Confirmed Albuterol Inhaler [Ventolin Hfa 1 puff INHALATION RT-Q4H PRN 05/21/20 05/21/20 Inhaler] Escitalopram [Lexapro] 20 mg PO DAILY 05/21/20 05/21/20 valACYclovir [Valtrex] 500 mg PO BID 05/21/20 05/21/20 Previous Rx's Medication Instructions Recorded Cephalexin [Keflex] 500 mg PO Q6HR 10 Days #40 cap 01/02/21 Acyclovir 400 mg PO TID #15 tablet 02/14/21 Allergies Allergy/AdvReac Type Severity Reaction Status Date / Time amoxicillin Allergy Rash/Hives Verified 08/18/21 20:02 latex Allergy Itching Verified 08/18/21 20:02 Review of Systems ROS Statement: Those systems with pertinent positive or pertinent negative responses have been documented in the HPI. ROS Other: All systems not noted in ROS Statement are negative. Past Medical History Past Medical History: Asthma, Thyroid Disorder Additional Past Medical History / Comment(s): BRUISES EASILY History of Any Multi-Drug Resistant Organisms: None Reported Past Surgical History: No Surgical Hx Reported Additional Past Surgical History / Comment(s): DENTAL EXTRACTION Past Anesthesia/Blood Transfusion Reactions: No Reported Reaction Past Psychological History: Anxiety, Depression Smoking Status: Never smoker Past Alcohol Use History: Occasional Past Drug Use History: Marijuana - Past Family History Mother Family Medical History: Cancer Additional Family Medical History / Comment(s): CERVICAL CA General Exam Limitations: no limitations General appearance: alert, in no apparent distress Head exam: Present: atraumatic, normocephalic, normal inspection Eye exam: Present: normal appearance, PERRL, EOMI. Absent: scleral icterus, conjunctival injection, periorbital swelling ENT exam: Present: normal exam, mucous membranes moist Neck exam: Present: normal inspection. Absent: tenderness, meningismus, lymphadenopathy Respiratory exam: Present: normal lung sounds bilaterally. Absent: respiratory distress, wheezes, rales, rhonchi, stridor Cardiovascular Exam: Present: regular rate, normal rhythm, normal heart sounds. Absent: systolic murmur, diastolic murmur, rubs, gallop, clicks GI/Abdominal exam: Present: soft, normal bowel sounds. Absent: distended, tenderness, guarding, rebound, rigid Extremities exam: Present: normal inspection, full ROM, normal capillary refill. Absent: tenderness, pedal edema, joint swelling, calf tenderness Back exam: Present: normal inspection Neurological exam: Present: alert, oriented X3, CN II-XII intact Psychiatric exam: Present: normal affect, normal mood Skin exam: Present: warm, dry, intact, normal color. Absent: rash Course Vital Signs 08/18/21 20:00 Temperature 99.1 F Pulse Rate 65 Respiratory 18 Rate Blood Pressure 118/83 O2 Sat by Pulse 96 Oximetry - Reevaluation(s) Reevaluation #1: 08/18/21 21:54 Medical record is reviewed Symptoms are essentially unchanged. Patient is informed of results and questions answered Patient in no distress Patient does have an elevated white blood cell count with a nondiagnostic pelvic ultrasound. IUD is in place. CT abdomen and pelvis ordered to rule out appendicitis. Medical Decision Making - Medical Decision Making Patient presented with pelvic pain and bleeding that her IUD was out of place. There was no evidence of this. Patient did have a slight free fluid in the pelvis which raises suspicion of possible ruptured ovarian cyst. There was no evidence of ovarian cysts or ovarian torsion. Patient has intermittent right p elvic and right lower quadrant area cramping. Not consistent with gallbladder disease. She was tender in the right lower quadrant. CT did not show any evidence of appendicitis or other intra-abdominal pathology. He may have had a ruptured ovarian cyst. I did recommend a pelvic examination which the patient refused. She is lucid, able make her own medical decisions. I did discuss risks for his benefits. Patient for an exam until she sees her security systems technician. Patient was told to return to the ER for any signs or symptoms worsen. Told to return immediately if any other problems arise. All questions answered. Treatment plan discussed. Patient in agreement Every effort has been made to ensure accuracy of this dictation. However, due to the limitations of electronic medical records and dictation devices, errors in charting still occur. - Lab Data Result diagrams: 08/18/21 21:00 08/18/21 21:00 Lab Results 08/18/21 08/18/21 08/18/21 Range/Units 20:56 20:56 21:00 WBC 12.6 H (3.8-10.6) k/uL RBC 4.95 (3.80-5.40) m/uL Hgb 14.6 (11.4-16.0) gm/dL Hct 43.9 (34.0-46.0) % MCV 88.7 (80.0-100.0) fL MCH 29.5 (25.0-35.0) pg MCHC 33.3 (31.0-37.0) g/dL RDW 12.1 (11.5-15.5) % Plt Count 252 (150-450) k/uL MPV 7.5 Neutrophils % 75 % Lymphocytes % 18 % Monocytes % 3 % Eosinophils % 2 % Basophils % 1 % Neutrophils # 9.4 H (1.3-7.7) k/uL Lymphocytes # 2.3 (1.0-4.8) k/uL Monocytes # 0.4 (0-1.0) k/uL Eosinophils # 0.2 (0-0.7) k/uL Basophils # 0.1 (0-0.2) k/uL Sodium (137-145) mmol/L Potassium (3.5-5.1) mmol/L Chloride (98-107) mmol/L Carbon Dioxide (22-30) mmol/L Anion Gap mmol/L BUN (7-17) mg/dL Creatinine (0.52-1.04) mg/dL Est GFR (CKD-EPI)AfAm (>60 ml/min/1.73 sqM) Est GFR (CKD-EPI)NonAf (>60 ml/min/1.73 sqM) Glucose (74-99) mg/dL Calcium (8.4-10.2) mg/dL Total Bilirubin (0.2-1.3) mg/dL AST (14-36) U/L ALT (4-34) U/L Alkaline Phosphatase (38-126) U/L Total Protein (6.3-8.2) g/dL Albumin (3.5-5.0) g/dL Lipase (23-300) U/L Urine Color Yellow Urine Appearance Cloudy H (Clear) Urine pH 6.5 (5.0-8.0) Ur Specific [place] 1.025 (1.001-1.035) Urine Protein Trace H (Negative) Urine Glucose (UA) Negative (Negative) Urine Ketones Negative (Negative) Urine Blood Negative (Negative) Urine Nitrite Negative (Negative) Urine Bilirubin Negative (Negative) Urine Urobilinogen <2.0 (<2.0) mg/dL Ur Leukocyte Esterase Trace H (Negative) Urine RBC 2 (0-5) /hpf Urine WBC 4 (0-5) /hpf Ur Squamous Epith Cells 7 H (0-4) /hpf Urine Bacteria Rare H (None) /hpf Urine Mucus Rare H (None) /hpf Urine HCG, Qual Not Detected (Not Detectd) 08/18/21 Range/Units 21:00 WBC (3.8-10.6) k/uL RBC (3.80-5.40) m/uL Hgb (11.4-16.0) gm/dL Hct (34.0-46.0) % MCV (80.0-100.0) fL MCH (25.0-35.0) pg MCHC (31.0-37.0) g/dL RDW (11.5-15.5) % Plt Count (150-450) k/uL MPV Neutrophils % % Lymphocytes % % Monocytes % % Eosinophils % % Basophils % % Neutrophils # (1.3-7.7) k/uL Lymphocytes # (1.0-4.8) k/uL Monocytes # (0-1.0) k/uL Eosinophils # (0-0.7) k/uL Basophils # (0-0.2) k/uL Sodium 139 (137-145) mmol/L Potassium 4.1 (3.5-5.1) mmol/L Chloride 102 (98-107) mmol/L Carbon Dioxide 25 (22-30) mmol/L Anion Gap 12 mmol/L BUN 14 (7-17) mg/dL Creatinine 0.76 (0.52-1.04) mg/dL Est GFR (CKD-EPI)AfAm >90 (>60 ml/min/1.73 sqM) Est GFR (CKD-EPI)NonAf >90 (>60 ml/min/1.73 sqM) Glucose 88 (74-99) mg/dL Calcium 9.5 (8.4-10.2) mg/dL Total Bilirubin 0.6 (0.2-1.3) mg/dL AST 18 (14-36) U/L ALT 7 (4-34) U/L Alkaline Phosphatase 83 (38-126) U/L Total Protein 9.0 H (6.3-8.2) g/dL Albumin 4.8 (3.5-5.0) g/dL Lipase 73 (23-300) U/L Urine Color Urine Appearance (Clear) Urine pH (5.0-8.0) Ur Specific [place] (1.001-1.035) Urine Protein (Negative) Urine Glucose (UA) (Negative) Urine Ketones (Negative) Urine Blood (Negative) Urine Nitrite (Negative) Urine Bilirubin (Negative) Urine Urobilinogen (<2.0) mg/dL Ur Leukocyte Esterase (Negative) Urine RBC (0-5) /hpf Urine WBC (0-5) /hpf Ur Squamous Epith Cells (0-4) /hpf Urine Bacteria (None) /hpf Urine Mucus (None) /hpf Urine HCG, Qual (Not Detectd) Disposition Clinical Impression: Pelvic pain Disposition: HOME SELF-CARE Condition: Good Instructions (If sedation given, give patient instructions): Pelvic Pain (ED) Additional Instructions: Use [id number] acetaminophen and/or ibuprofen for pain control. Follow up with the security systems technician on Friday. Follow-up with your regular physician as directed. Return to the ER immediately if any symptoms worsen, new symptoms arise, or any other problems develop. Is patient prescribed a controlled substance at d/c from ED?: No Referrals: Rosanne Mejia DO [Doctor of Osteopathic Medicine] - 08/20/21 Time of Disposition: 23:01
[2021-08-18 21:06] LABS: Basophils # (A) 0.1 k/uL (0-0.2); Basophils % (A) 1 %; Eosinophils # (A) 0.2 k/uL (0-0.7); Eosinophils % (A) 2 %; HCT 43.9 % (34.0-46.0); HGB 14.6 gm/dL (11.4-16.0); Lymphocytes # (A) 2.3 k/uL (1.0-4.8); Lymphocytes % (A) 18 %; MCH 29.5 pg (25.0-35.0); MCHC 33.3 g/dL (31.0-37.0); MCV 88.7 fL (80.0-100.0); Mean Platelet Volume 7.5; Monocytes # (A) 0.4 k/uL (0-1.0); Monocytes % (A) 3 %; Neutrophils # (A) 9.4 k/uL (1.3-7.7); Neutrophils % (A) 75 %; Platelet Count 252 k/uL (150-450); RBC 4.95 m/uL (3.80-5.40); RDW 12.1 % (11.5-15.5); WBC 12.6 k/uL (3.8-10.6)
[2021-08-18 21:14] LABS: Appearance,Urine Cloudy (Clear); Bacteria,Urine Rare /hpf; Bilirubin,Urine Negative (Negative); Blood,Urine Negative (Negative); Color,Urine Yellow; Glucose,Urine (UA) Negative (Negative); Ketones,Urine Negative (Negative); Leukocyte Esterase,Urine Trace (Negative); Mucus,Urine Rare /hpf; Nitrite,Urine Negative (Negative); PH, Urine 6.5 (5.0-8.0); Protein,Urine Trace (Negative); RBC,Urine 2 /hpf (0-5); Specific Gravity,Urine 1.025 (1.001-1.035); Squamous Epithelial Cell,Urine 7 /hpf (0-4); Urobilinogen,Urine <2.0 mg/dL (<2.0); WBC,Urine 4 /hpf (0-5)
--- NOTE | 2021-08-18 21:25 | US ---
EXAMINATION TYPE: US transvaginal DATE OF EXAM: 08/18/2021 COMPARISON: NONE CLINICAL HISTORY: right pelvic pain . right pelvic pain. IUD placement 1 year ago TECHNIQUE: Transvaginal (TV). Date of LMP: 5 years ago EXAM MEASUREMENTS: Uterus: 6.5 x 2.2 x 3.5 cm Endometrial Stripe: 0.2 cm Right Ovary: 2.7 x 2.0 x 2.5 cm Left Ovary: 2.0 x 1.4 x 2.3 cm 1. Uterus: Anteverted IUD visualized within fundus/body of uterus 2. Endometrium: wnl 3. Right Ovary: follicles noted 4. Left Ovary: follicles noted Spectral, color and waveform doppler imaging shows good arterial and venous flow within the ovaries ; there is no evidence for ovarian torsion. 5. Bilateral Adnexa: wnl 6. Posterior cul-de-sac: small amount of free fluid IMPRESSION: IUD appears in good position in the uterine fundus. No endometrial thickening. No adnexal mass. No fr ee fluid. No evidence of ovarian torsion.
[2021-08-18 21:30] LABS: ALT 7 U/L (4-34); AST 18 U/L (14-36); African American GFR (CKD) >90 (>60 ml/min/1.73 sqM); Albumin 4.8 g/dL (3.5-5.0); Alkaline Phosphatase 83 U/L (38-126); Anion Gap 12 mmol/L; Blood Urea Nitrogen 14 mg/dL (7-17); Calcium 9.5 mg/dL (8.4-10.2); Carbon Dioxide 25 mmol/L (22-30); Chloride 102 mmol/L (98-107); Glucose 88 mg/dL (74-99); Lipase 73 U/L (23-300); Non-African American GFR(CKD) >90 (>60 ml/min/1.73 sqM); Potassium 4.1 mmol/L (3.5-5.1); Sodium 139 mmol/L (137-145); Total Bilirubin 0.6 mg/dL (0.2-1.3)
--- NOTE | 2021-08-18 22:26 | CT ---
EXAMINATION TYPE: CT abdomen pelvis w con DATE OF EXAM: 08/18/2021 COMPARISON: None HISTORY: RQL pain CT DLP: 901.1 mGycm Automated exposure control for dose reduction was used. CONTRAST: Performed with IV Contrast, patient injected with 100 mL of Isovue 300. Lung bases are clear. There is no pleural effusion. Heart size is normal. There is no pericardial eff usion. Liver spleen stomach pancreas gallbladder appear intact. The bile ducts are not dilated. There is no adrenal mass. Kidneys show satisfactory contrast opacification. There is no hydronephrosi s. Ureters are nondilated. Delayed images show normal renal excretion. There is no retroperitoneal ad enopathy. Bladder distends smoothly. There is small amount of low-density fluid in the pelvis. There is IUD noted in the uterine fundus. Uterus is anteverted. Appendix appears normal. There is no mesent meghan edema. No ascites or free air. No bowel obstruction. The lumbar vertebrae have normal alignment. Posterior elements are intact. No compression fracture. Bony pelvis appears intact. IMPRESSION: There is mild low-density fluid in the pelvis that could be physiologic. IUD in good position. Normal appendix.
== END 2021-08-18 23:57 | disposition home or self-care (01) ==
LOC: EC 19:52
DX: R10.2 Pelvic and perineal pain (principal); D72.829 Elevated white blood cell count, unspecified; J45.909 Unspecified asthma, uncomplicated; Z97.5 Presence of (intrauterine) contraceptive device; Z91.040 Latex allergy status; Z88.0 Allergy status to penicillin
CPT/HCPCS: 36415; 80053; 83690; 85025; 81001; 81025; 93975; 76830; 74177; 99284; 96374; 96361; J1885; Q9967

== ENCOUNTER 2022-07-18 11:23 | Emergency (ER) | payer OTHER ==
[2022-07-18 11:54] VITALS: RESP 18
[2022-07-18] MEDS ORDERED: ONDANSETRON 4 MG/2 ML VIAL IVP STA (12:17)
[2022-07-18] MEDS ORDERED: LORazepam 2 MG/ML INJ IV STA (12:17)
[2022-07-18] MEDS ORDERED: SODIUM CHLORIDE 0.9% 1,000 ML IV STA (12:17)
[2022-07-18] MEDS ORDERED: FAMOTIDINE 20 MG/2 ML VIAL IV STA (12:17)
--- NOTE | 2022-07-18 12:20 | ED ---
General Adult HPI - General Chief complaint: Anxiety Stated complaint: Anxiety,Vomiting Time Seen by Provider: 07/18/22 11:58 Source: patient, RN notes reviewed Mode of arrival: ambulatory Limitations: no limitations - History of Present Illness Initial comments: Patient is a pleasant 26-year-old female presenting to the emergency department with concerns of anxiety and nausea. Onset of symptoms was last night. Patient has anxiety related to her roommate. Patient is vomited around 8 times and is concerned she is dehydrated. Last time she was here she did receive IV fluids for the same problem. No abdominal pain. Patient does have history of similar symptoms previously associated with anxiety. Patient denies suicidal thoughts. - Related Data Home Medications Medication Instructions Recorded Confirmed Albuterol Inhaler [Ventolin Hfa 1 puff INHALATION RT-Q4H PRN 05/21/20 05/21/20 Inhaler] Escitalopram [Lexapro] 20 mg PO DAILY 05/21/20 05/21/20 valACYclovir HCL [Valtrex] 500 mg PO BID 05/21/20 05/21/20 Previous Rx's Medication Instructions Recorded Cephalexin [Keflex] 500 mg PO Q6HR 10 Days #40 cap 01/02/21 Acyclovir [Zovirax] 400 mg PO TID #15 tablet 02/14/21 Allergies Allergy/AdvReac Type Severity Reaction Status Date / Time amoxicillin Allergy Rash/Hives Verified 07/18/22 11:53 latex Allergy Itching Verified 07/18/22 11:53 Review of Systems ROS Statement: Those systems with pertinent positive or pertinent negative responses have been documented in the HPI. ROS Other: All systems not noted in ROS Statement are negative. Constitutional: Denies: fever Eyes: Denies: eye pain ENT: Denies: ear pain Respiratory: Denies: cough Cardiovascular: Denies: chest pain Endocrine: Denies: fatigue Gastrointestinal: Reports: nausea, vomiting. Denies: abdominal pain Genitourinary: Denies: dysuria Musculoskeletal: Denies: back pain Skin: Denies: rash Neurological: Denies: weakness Psychiatric: Reports: anxiety Past Medical History Past Medical History: Asthma, Thyroid Disorder Additional Past Medical History / Comment(s): BRUISES EASILY History of Any Multi-Drug Resistant Organisms: None Reported Past Surgical History: No Surgical Hx Reported Additional Past Surgical History / Comment(s): DENTAL EXTRACTION Past Anesthesia/Blood Transfusion Reactions: No Reported Reaction Past Psychological History: Anxiety, Depression Smoking Status: Never smoker Past Alcohol Use History: Occasional Past Drug Use History: Marijuana - Past Family History Mother Family Medical History: Cancer Additional Family Medical History / Comment(s): CERVICAL CA General Exam Limitations: no limitations General appearance: alert, in no apparent distress Head exam: Present: normocephalic Eye exam: Present: normal appearance Neck exam: Present: normal inspection Respiratory exam: Present: normal lung sounds bilaterally Cardiovascular Exam: Present: regular rate, normal rhythm GI/Abdominal exam: Present: soft. Absent: tenderness Extremities exam: Present: normal inspection Neurological exam: Present: alert Psychiatric exam: Present: normal affect, normal mood Skin exam: Present: normal color Course Vital Signs 07/18/22 11:50 Temperature 98.3 F Pulse Rate 104 H Respiratory 18 Rate Blood Pressure 135/93 O2 Sat by Pulse 98 Oximetry Medical Decision Making - Medical Decision Making Was pt. sent in by a medical professional or institution (, PA, NEUROPHYSIOLOGICAL TECHNICIAN, urgent care, hospital, or half-way...) When possible be specific @ -No Did you speak to anyone other than the patient for history (EMS, parent, family, police, friend...)? What history was obtained from this source @ -No Did you review nursing and triage notes (agree or disagree)? Why? @ -I reviewed and agree with nursing and triage notes Were old charts reviewed (outside hosp., previous admission, EMS record, old EKG, old radiological studies, urgent care reports/EKG's, half-way records)? Report findings @ -No old charts were reviewed Differential Diagnosis (chest pain, altered mental status, abdominal pain women, abdominal pain men, vaginal bleeding, weakness, fever, dyspnea, syncope, headache, dizziness, GI bleed, back pain, seizure, CVA, palpatations, mental health)? @ -not applicable EKG interpreted by me (3pts min.). @ -As above X-rays interpreted by me (1pt min.). @ -None done CT interpreted by me (1pt min.). @ -None done U/S interpreted by me (1pt. min.). @ -None done What testing was considered but not performed or refused? (CT, X-rays, U/S, labs)? Why? @ -None What meds were considered but not given or refused? Why? @ -None Did you discuss the management of the patient with other professionals (professionals i.e. , PA, NEUROPHYSIOLOGICAL TECHNICIAN, lab, RT, psych nurse, sexual assault social worker, transit mixer driver, teacher, hospital admissions officer, case consultant)? Give summary @ -No Was smoking cessation discussed for >3mins.? @ -No Was critical care preformed (if so, how long)? @ -No Were there social determinants of health that impacted care today? How? (Homelessness, low income, unemployed, alcoholism, drug addiction, transportation, low edu. Level, literacy, decrease access to med. care, assisted, rehab)? @ -No Was there de-escalation of care discussed even if they declined (Discuss DNR or withdrawal of care, Hospice)? DNR status @ -No What co-morbidities impacted this encounter? (DM, HTN, Smoking, COPD, CAD, Cancer, CVA, ARF, Chemo, Hep., AIDS, mental health diagnosis, sleep apnea, morbid obesity)? @ -None Was patient admitted / discharged? Hospital course, mention meds given and route, prescriptions, significant lab abnormalities, going to OR and other pertinent info. @ -Labs reviewed. Patient reevaluated and feeling much better. Patient still receiving fluid bolus and will be discharged following this. Patient updated on results and need for follow-up Undiagnosed new problem with uncertain prognosis? @ -No Drug Therapy requiring intensive monitoring for toxicity (Heparin, Nitro, Insulin, Cardizem)? @ -No Were any procedures done? @ -No Diagnosis/symptom? @ -Anxiety Acute, or Chronic, or Acute on Chronic? @ -Acute Uncomplicated (without systemic symptoms) or Complicated (systemic symptoms)? @ -default Side effects of treatment? @ -No Exacerbation, Progression, or Severe Exacerbation? @ -No Poses a threat to life or bodily function? How? (Chest pain, [place], [place], pneumonia, PE, COPD, DKA, ARF, appy, cholecystitis, CVA, Diverticulitis, Homicidal, Suicidal, threat to staff... and all critical care pts) @ -No - Lab Data Result diagrams: 07/18/22 12:33 07/18/22 12:33 Lab Results 07/18/22 07/18/22 Range/Units 12:33 12:33 WBC 11.1 H (3.8-10.6) k/uL RBC 4.70 (3.80-5.40) m/uL Hgb 13.6 (11.4-16.0) gm/dL Hct 40.5 (34.0-46.0) % MCV 86.3 (80.0-100.0) fL MCH 29.0 (25.0-35.0) pg MCHC 33.6 (31.0-37.0) g/dL RDW 12.2 (11.5-15.5) % Plt Count 237 (150-450) k/uL MPV 7.4 Neutrophils % 88 % Lymphocytes % 9 % Monocytes % 3 % Eosinophils % 0 % Basophils % 0 % Neutrophils # 9.7 H (1.3-7.7) k/uL Lymphocytes # 1.0 (1.0-4.8) k/uL Monocytes # 0.3 (0-1.0) k/uL Eosinophils # 0.0 (0-0.7) k/uL Basophils # 0.0 (0-0.2) k/uL Sodium 141 (137-145) mmol/L Potassium 4.2 (3.5-5.1) mmol/L Chloride 107 (98-107) mmol/L Carbon Dioxide 20 L (22-30) mmol/L Anion Gap 14 mmol/L BUN 11 (7-17) mg/dL Creatinine 0.61 (0.52-1.04) mg/dL Est GFR (CKD-EPI)AfAm >90 (>60 ml/min/1.73 sqM) Est GFR (CKD-EPI)NonAf >90 (>60 ml/min/1.73 sqM) Glucose 87 (74-99) mg/dL Calcium 9.5 (8.4-10.2) mg/dL Total Bilirubin 1.1 (0.2-1.3) mg/dL AST 19 (14-36) U/L ALT 12 (4-34) U/L Alkaline Phosphatase 82 (38-126) U/L Total Protein 8.3 H (6.3-8.2) g/dL Albumin 4.8 (3.5-5.0) g/dL Disposition Clinical Impression: Acute anxiety Disposition: HOME SELF-CARE Condition: Stable Instructions (If sedation given, give patient instructions): Generalized Anxiety Disorder (ED) Additional Instructions: Please do follow-up with your primary care physician in the next couple days for recheck. Return for uncontrolled vomiting, worsening or change in symptoms, or other concerns. Is patient prescribed a controlled substance at d/c from ED?: No Referrals: Rehana Billy MD [Primary Care Provider] - 1-2 days Time of Disposition: 13:22
[2022-07-18 12:53] LABS: Basophils % (A) 0 %; Eosinophils % (A) 0 %; HCT 40.5 % (34.0-46.0); HGB 13.6 gm/dL (11.4-16.0); Lymphocytes % (A) 9 %; MCHC 33.6 g/dL (31.0-37.0); MCV 86.3 fL (80.0-100.0); Mean Platelet Volume 7.4; Monocytes # (A) 0.3 k/uL (0-1.0); Monocytes % (A) 3 %; Neutrophils # (A) 9.7 k/uL (1.3-7.7); Neutrophils % (A) 88 %; Platelet Count 237 k/uL (150-450); RDW 12.2 % (11.5-15.5); WBC 11.1 k/uL (3.8-10.6)
[2022-07-18 12:54] LABS: ALT 12 U/L (4-34); AST 19 U/L (14-36); African American GFR (CKD) >90 (>60 ml/min/1.73 sqM); Albumin 4.8 g/dL (3.5-5.0); Alkaline Phosphatase 82 U/L (38-126); Anion Gap 14 mmol/L; Blood Urea Nitrogen 11 mg/dL (7-17); Calcium 9.5 mg/dL (8.4-10.2); Carbon Dioxide 20 mmol/L (22-30); Chloride 107 mmol/L (98-107); Glucose 87 mg/dL (74-99); Non-African American GFR(CKD) >90 (>60 ml/min/1.73 sqM); Potassium 4.2 mmol/L (3.5-5.1); Sodium 141 mmol/L (137-145); Total Bilirubin 1.1 mg/dL (0.2-1.3); Total Protein 8.3 g/dL (6.3-8.2)
[2022-07-18 14:47] VITALS: BP 117/80; PULSE 96; TEMP 98.7
== END 2022-07-18 15:38 | disposition home or self-care (01) ==
LOC: EC 11:23
DX: F41.9 Anxiety disorder, unspecified (principal); J45.909 Unspecified asthma, uncomplicated; F32.A Depression, unspecified; F12.90 Cannabis use, unspecified, uncomplicated; Z79.899 Other long term (current) drug therapy; Z88.0 Allergy status to penicillin; Z91.040 Latex allergy status
CPT/HCPCS: 36415; 80053; 85025; 99283; 96374; 96375 ×2; J2060; J2405